=== PATIENT | male | born 1970 | race American Indian/Alaskan Native ===

== ENCOUNTER 2018-10-09 11:09 | Emergency (ER) | payer MEDICAID, OTHER ==
[2018-10-09 11:20] VITALS: BP 160/106
--- NOTE | 2018-10-09 11:25 | Emergency Department Report ---
Blank Doc - Documentation Documentation: 48 y o male presents with kidney pain x 3 day also rports worse in the am sob with coughing labs Ua
--- NOTE | 2018-10-09 11:54 | XRay Report ---
ROUTINE CHEST, TWO VIEWS: SOB. PA and lateral views demonstrate the heart and mediastinal contour to be of normal size and shape. The lungs are clear and fully expanded and the soft tissues and bony structures are normal. IMPRESSION: Normal study.
[2018-10-09 12:01] LABS: Bilirubin,Urine NEG (Negative); Blood,Urine NEG (Negative); Color,Urine Straw (Yellow); Mucus,Urine FEW /HPF; Protein,Urine <15 mg/dL mg/dL (Negative); Sperm,Urine FEW /HPF (NP); Urobilinogen,Urine < 2.0 mg/dL (<2.0)
--- NOTE | 2018-10-09 12:26 | Emergency Department Report ---
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), No Sore Throat, No Ear Pain, No Hemoptysis, No Chest Pain, No Shortness of Breath, No Fever ED Review of Systems ROS: Stated complaint: KIDNEY/SOB Other details as noted in HPI Comment: All other systems reviewed and negative ED Past Medical Hx - Past Medical History Previous Medical History?: No - Surgical History Past Surgical History?: No - Social History Smoking Status: Never Smoker Substance Use Type: None - Medications Home Medications: Home Medications Medication Instructions Recorded Confirmed Last Taken Type ALBUTEROL Inhaler (OR & NICU) 2 puff IH QID PRN #1 inhalation 10/09/18 Unknown Rx [ProAir HFA Inhaler] Benzonatate [Tessalon Perles] 100 mg PO Q8HR #10 capsule 10/09/18 Unknown Rx predniSONE [Deltasone] 20 mg PO QDAY #5 tab 10/09/18 Unknown Rx Minor Respiratory Exam - Exam General: Vital signs noted. No distress. Alert and acting appropriately. HEENT: Yes Moist Mucous Membranes, No Pharyngeal Erythema, No Pharyngeal Exudates, No Rhinorrhea, No Conjuctival Injection, No Frontal Tenderness, No Maxillary Tenderness Ear: Neither TM Bulge, Neither TM Erythema, Neither EAC Pain, Neither EAC Discharge Neck: Yes Supple, No Adenopathy Lungs: Yes Good Air Exchange, No Wheezes, No Ronchi, No Stridor, No Cough, No Labored Respirations, No Retractions, No Use of Accessory Muscles, No Other Abnormal Lung Sounds Heart: Yes Regular, No Murmur Abdomen: Yes Normal Bowel Sounds, No Tenderness, No Peritoneal Signs Skin: No Rash, No Edema Neurologic: Alert and oriented, no deficits. Musculoskeletal: Unremarkable. ED Course Vital Signs 10/09/18 11:17 Temperature 97.5 F L Pulse Rate 90 Respiratory 16 Rate Blood Pressure 160/106 O2 Sat by Pulse 98 Oximetry ED Medical Decision Making - Lab Data Labs 10/09/18 11:29 Urine Color Straw Urine Turbidity Clear Urine pH 6.0 Ur Specific [place] 1.010 Urine Protein <15 mg/dl Urine Glucose (UA) 50 Urine Ketones Neg Urine Blood Neg Urine Nitrite Neg Urine Bilirubin Neg Urine Urobilinogen < 2.0 Ur Leukocyte Esterase Neg Urine WBC (Auto) 1.0 Urine RBC (Auto) 2.0 Urine Mucus Few Urine Sperm Few - Radiology Data Radiology results: report reviewed (CXR WNL) - Medical Decision Making Patient was having some back discomfort with his cough. Patient likely with some costochondritis. Patient was convinced that his urine and kidney were the issue. Patient urinalysis with malaise. Patient diagnosed with acute bronchitis and be treated accordingly. Critical care attestation.: If time is entered above; I have spent that time in minutes in the direct care of this critically ill patient, excluding procedure time. ED Disposition Clinical Impression: Acute bronchitis Qualifiers: Bronchitis organism: unspecified organism Qualified Code(s): J20.9 - Acute bronchitis, unspecified Disposition: DC-01 TO HOME OR SELFCARE Is pt being admited?: No Does the pt Need Aspirin: No Condition: Stable Instructions: Acute Bronchitis (ED) Time of Disposition: 12:26
== END 2018-10-09 12:35 | disposition home or self-care (01) ==
LOC: ED 11:09
DX: J02.9 Acute pharyngitis, unspecified (principal)
CPT/HCPCS: 71046; 81001

== ENCOUNTER 2019-01-11 00:19 | Emergency (ER) | payer MEDICAID, OTHER ==
--- NOTE | 2019-01-11 03:27 | Emergency Department Report ---
HPI - General Chief Complaint: Dental/Oral Time Seen by Provider: 01/11/19 02:40 - HPI HPI: This is a 48-year-old male with a history of diabetes controlled with medication who presents to ED ED complaining of left sided dental pain for the past week. Patient also states that he's been out of his medications as he just moved out here to the lumbar area. Patient states he takes Lantus) of the toes and daily. Patient denies fever assess chills/abdominal pain/shortness of breath ED Past Medical Hx - Past Medical History Previous Medical History?: Yes Hx Hypertension: Yes Hx Diabetes: Yes - Surgical History Past Surgical History?: No - Social History Smoking Status: Never Smoker Substance Use Type: None - Medications Home Medications: Home Medications Medication Instructions Recorded Confirmed Last Taken Type ALBUTEROL Inhaler (OR & NICU) 2 puff IH QID PRN #1 inhalation 10/09/18 Unknown Rx [ProAir HFA Inhaler] Benzonatate [Tessalon Perles] 100 mg PO Q8HR #10 capsule 10/09/18 Unknown Rx predniSONE [Deltasone] 20 mg PO QDAY #5 tab 10/09/18 Unknown Rx Clindamycin [Clindamycin CAP] 300 mg PO Q8H #21 cap 01/11/19 Unknown Rx Insulin Glargine,Hum.rec.anlog 50 unit SQ DAILY #5 insuln.pen 01/11/19 Unknown Rx [Lantus Solostar] Liraglutide [Victoza 2-Bernabe] 0.6 mg SQ QDAY #2 pack 01/11/19 Unknown Rx glyBURIDE [Diabeta] 5 mg PO DAILY #40 tablet 01/11/19 Unknown Rx ED Review of Systems ROS: Stated complaint: DIBETES MED REFILL Other details as noted in HPI Comment: All other systems reviewed and negative Physical Exam - Physical Exam Vital Signs: Vital Signs 01/11/19 00:23 Temperature 98.0 F Pulse Rate 102 H Respiratory 18 Rate Blood Pressure 176/109 O2 Sat by Pulse 98 Oximetry Physical Exam: GENERAL: Alert and oriented x3, no apparent distress, Normal Gait, atraumatic. HEAD: Head is normocephalic and a-traumatic. EYES: Extra ocular muscles are intact. Pupils are equal, round, and reactive to light and accommodation. EARS: symetrical, atraumatic, non tender, ear canal clear and moderate cerumen, tympanic membrance non inflamed. gross auditory nml bilaterally. NOSE: Nose symetrical, Nontender,Nares appeared normal. MOUTH:Mouth is well hydrated and without lesions. Tonsils nonerythematous or swollen, Uvula midline, Tongue not elevated. Mucous membranes are moist. Posterior pharynx clear, no exudate or lesions. Patent airways. Dental caries noted in the upper tooth #5 SKIN: Warm and dry, No lesions, No ulceration or induration present. ED Course Vital Signs 01/11/19 00:23 Temperature 98.0 F Pulse Rate 102 H Respiratory 18 Rate Blood Pressure 176/109 O2 Sat by Pulse 98 Oximetry ED Medical Decision Making - Medical Decision Making 48-year-old male presents to ED with dental caries and hyperglycemia due to not having his medication As well as a refill for his diabetes medication. Patient given antibiotics for dental caries. Medication refilled. Discussed admission or follow-up with primary care physician as referred Vital signs are normal patient is in acute distress. Critical care attestation.: If time is entered above; I have spent that time in minutes in the direct care of this critically ill patient, excluding procedure time. ED Disposition Clinical Impression: Diabetes, Pain, dental Disposition: DC-01 TO HOME OR SELFCARE Is pt being admited?: No Does the pt Need Aspirin: No Condition: Stable Instructions: Diabetes Mellitus Type 2 in Adults (ED), Dental Caries (ED) Additional Instructions: Make sure to follow up with the primary care physician as discussed. Take all your medications as you've been prescribed. If you have any worsening symptoms or develop new symptoms please return to ED immediately. Prescriptions: Clindamycin [Clindamycin CAP] 300 mg PO Q8H #21 cap glyBURIDE [Diabeta] 5 mg PO DAILY #40 tablet Insulin Glargine,Hum.rec.anlog [Lantus Solostar] 50 unit SQ DAILY #5 insuln.pen Liraglutide [Victoza 2-Bernabe] 0.6 mg SQ QDAY #2 pack Referrals: COURTNEY WYNN MD [Primary Care Provider] - 3-5 Days [facility] [Provider Group] - 3-[address] [facility] [Outside] - 3-5 Days [facility] [Outside] - 3-5 Days Forms: Accompanied Note, Work/School Release Form(ED) Time of Disposition: 03:44
[2019-01-11 04:21] VITALS: BP 195/131
== END 2019-01-11 04:23 | disposition home or self-care (01) ==
LOC: ED 00:19
DX: K08.89 Other specified disorders of teeth and supporting structures (principal); E11.65 Type 2 diabetes mellitus with hyperglycemia; I10 Essential (primary) hypertension
CPT/HCPCS: 82962; 99283